=== PATIENT | male | born 1945 | race Caucasian/White ===

== ENCOUNTER → 2024-05-19 12:49 | Outpatient (REF) | payer OTHER, SELFPAY | LOC: RAD 12:49 | PROVIDERS: ATTENDING PHYSICIAN Nurse Practitioner Family | DX: M54.32 Sciatica, left side (principal); M25.552 Pain in left hip | CPT/HCPCS: 72110; 72220; 73502 ==

== ENCOUNTER → 2024-06-09 05:32 | Outpatient (REF) | payer OTHER, SELFPAY | LOC: MRI 3T 05:32 | PROVIDERS: ATTENDING PHYSICIAN Specialist; FAMILY PHYSICIAN Nurse Practitioner Family | DX: M25.552 Pain in left hip (principal); M54.16 Radiculopathy, lumbar region | CPT/HCPCS: 72148; 73721 ==

== ENCOUNTER → 2025-03-14 14:23 | Outpatient (REF) | payer OTHER, SELFPAY | LOC: RAD 14:23 | PROVIDERS: ATTENDING PHYSICIAN Specialist; FAMILY PHYSICIAN Nurse Practitioner Family | DX: R19.04 Left lower quadrant abdominal swelling, mass and lump (principal) | CPT/HCPCS: 74177; Q9967 ==

== ENCOUNTER 2025-03-28 06:21 | Day surgery (SDC) | payer OTHER, SELFPAY | END 2025-03-28 11:29 | disposition home or self-care (01) | LOC: GI 06:21 | PROVIDERS: ATTENDING PHYSICIAN Specialist | DX: Z12.11 Encounter for screening for malignant neoplasm of colon (principal); D12.3 Benign neoplasm of transverse colon; K63.5 Polyp of colon; K57.30 Diverticulosis of large intestine without perforation or abscess without bleeding; K62.1 Rectal polyp; Z86.0101 Personal history of adenomatous and serrated colon polyps | CPT/HCPCS: 45385; 45380; 88305 ==